=== PATIENT | male | born 1950 | race Caucasian/White ===

== ENCOUNTER → 2018-05-09 | Outpatient (CLI) | payer OTHER ==
[~2018-05-09] VITALS: Ht 193 cm; Wt 136.1 kg
== END | disposition home or self-care (01) ==
LOC: Rad HDHVI 10:47
PROVIDERS: ATTEND Internal Medicine Cardiovascular Disease
DX: I48.0 Paroxysmal atrial fibrillation (principal); I48.91 Unspecified atrial fibrillation; M10.9 Gout, unspecified
CPT/HCPCS: 78452; 93017; 93306; 96374; A9500

== ENCOUNTER → 2019-07-25 | Outpatient (CLI) | payer OTHER | END | disposition home or self-care (01) | LOC: Rad HDHVI 08:33 | PROVIDERS: ATTEND Internal Medicine Cardiovascular Disease | DX: I50.33 Acute on chronic diastolic (congestive) heart failure (principal); I48.91 Unspecified atrial fibrillation; R00.1 Bradycardia, unspecified | CPT/HCPCS: 93306 ==

== ENCOUNTER → 2020-03-13 | Outpatient (CLI) | payer OTHER ==
[2020-03-13 08:19] VITALS: BP 122/79
--- NOTE | 2020-03-13 08:19 | NUR ---
CLINIC PT ARRIVED TO THE [facility] FOR PRE OP EKG, LABS, CXR FOR PPI/CARDIOVERSION, A/OX4, AMBULATORY WITH CANE. BREATHING IS EVEN AND UNLABORED.
--- NOTE | 2020-03-13 08:25 | NUR ---
EKG DONE BY HARLAN DORANTES REVIEWED BY ANURADHA HAYNES A FIB [id number]
[2020-03-13 08:35] VITALS: BP 138/84
--- NOTE | 2020-03-13 08:35 | NUR ---
Pre-Op Discharge Summary: See e-MAR for any medications given for this visit. Pre-op orders received and carried out per MD of EKG, LABS and chest xrays. Patient given a copy of EKG with instructions to go to [facility] out patient for further follow up care. NOTE EKG DONE BY HARLAN DORANTES REVIEWED BY ANURADHA HAYNES
[2020-03-13 12:02] LABS: Hematocrit 46.3 % (41.0-53.0); Hemoglobin 14.8 g/dL (13.5-17.5); Mean Corpuscular Hemoglobin 29.1 pg (28.0-32.0); Platelet Count (auto) 113 10^3/uL (140-450); Red Blood Cells 5.09 10^6/uL (4.5-5.90); Red Cell Distribution Width 15.2 % (11.8-14.3)
[2020-03-13 12:08] LABS: Band Neutrophils % (manual) 0; Basophils % (manual) 0 (0.0-2.0); Blast Cells 0; Metamyelocytes % 0; Myelocytes % 0; Promyelocytes % 0; Reactive Lymphocytes 0
[2020-03-13 12:12] LABS: BUN/Creatinine Ratio 12.3; Calcium 9.7 mg/dL (8.5-10.1); INR 1.03 (0.9-1.15); Partial Thromboplastin Time 29.4 sec (23.0-31.2); Potassium 4.2 mmol/L (3.5-5.1)
[2020-03-13 12:38] LABS: Eosinophils % (manual) 3 (0-7); Lymphocytes % (manual) 74 (10.0-50.0); Monocytes % (manual) 3 (0-12)
== END | disposition home or self-care (01) ==
LOC: Rad HDHVI 08:06
PROVIDERS: ATTEND Internal Medicine Cardiovascular Disease
DX: Z01.812 Encounter for preprocedural laboratory examination (principal); J98.11 Atelectasis; Z01.818 Encounter for other preprocedural examination; J84.9 Interstitial pulmonary disease, unspecified; I50.9 Heart failure, unspecified
CPT/HCPCS: 36415; 71046; 80048; 85007; 85027; 85610; 85730; 93005; G0463

== ENCOUNTER 2020-03-19 07:27 | Inpatient (IN) | payer OTHER ==
[~2020-03-19] VITALS: Ht 193 cm; Wt 135.7 kg
[~2020-03-19 07:27] MED LIST: ALLO300T2 PO; APIX2.5T PO; OMEP20TA PO; POM PO; SOTA80TA PO; TAMS0.4C36 PO
[2020-03-19] MEDS ORDERED: MIDAZOLAM HCL 1MG/1ML-2 ML VIAL IV ONE (08:45)
[2020-03-19] MEDS ORDERED: VANCOMYCIN 1GM/250ML 250 ML IV ONE (10:15)
[2020-03-19] MEDS ORDERED: diphenhdrAMINE HCL 50 MG/1 ML VL ONE (10:20)
[2020-03-19] MEDS ORDERED: diphenhdrAMINE HCL 50 MG/1 ML VL IV ONE (10:30)
[2020-03-19] MEDS ORDERED: MIDAZOLAM HCL 1MG/1ML-2 ML VIAL ONE (11:23)
[2020-03-19] MEDS ORDERED: fentaNYL CITRATE 100 MCG/2 ML VL ONE (11:38)
[2020-03-19] MEDS ORDERED: LIDOCAINE 2%HCL (LOCAL ANESTH.) INJ 20ML MDV ONE (11:41)
[2020-03-19] MEDS ORDERED: VANCOMYCIN HCL 1000 MG VL ONE (11:41)
[2020-03-19] MEDS ORDERED: MORPHINE SULF INJ 2 MG/ML SYRINGE 1ML IV PRN (12:45)
[2020-03-19] MEDS ORDERED: NITROGLYCERIN 0.4 MG SL TAB SL PRN (12:45)
[2020-03-19] MEDS: ceFAZolin 1GM/50ML 50 ML IV SCH ×2 (14:19→21:29)
--- NOTE | 2020-03-19 16:15 | NUR ---
Admit from [facility]ailiff Report received from DALLAS Navarro. DIXON ACEVEDO brought to bed following cardioversion and dual chamber pacemaker insertion with Dr. Moore. Patient transferred to unit bed, connected to nuclear monitoring technician; #46 SR 80'S. Safeguard in place with sling immobilizing left arm. Patient aware of restrictions. All questions and concerns addressed, patient verbalized understanding of all education and instruction. Bed is low, locked with 2x side rails up. Call light is within reach. NOTE:
[2020-03-19 17:00] VITALS: BP 137/83
[2020-03-19] MEDS ORDERED: POM PO (17:03)
[2020-03-19] MEDS ORDERED: TAMSULOSIN HYDROCHLORIDE 0.4 MG CAP PO SCH (18:00)
[2020-03-19] MEDS ORDERED: PATIENTS OWN MEDICATION PO SCH (18:00)
--- NOTE | 2020-03-19 19:25 | NUR ---
Opening Shift Note Assumed care of patient, awake and alert x 4. No S/S of distress/SOB or pain safe guard to left chest in place. Tele box matches pt all leads are in place. Bed lowered and locked side rails up x 2. Call light and bedside table are within reach. Instructed on POC and to call for assist PRN, will continue to monitor for changes Q1hr and PRN.
[2020-03-19] MEDS: SOTALOL HCL 80 MG TAB PO SCH (21:31)
[2020-03-19 22:00] VITALS: BP 135/78
[2020-03-19] MEDS ORDERED: SOTALOL HCL 80 MG TAB PO SCH (22:00)
--- NOTE | 2020-03-19 22:05 | NUR ---
Contacted Dr. Moore request for pain medication new orders received.
[2020-03-20] MEDS ORDERED: KETOROLAC TROMETH 30 MG/ML 1ML VIAL IV PRN (00:30)
[2020-03-20] MEDS: ceFAZolin 1GM/50ML 50 ML IV SCH (04:38)
[2020-03-20 05:33] VITALS: BP 115/73
[2020-03-20 08:34] VITALS: BP 137/87
[2020-03-20] MEDS: SOTALOL HCL 80 MG TAB PO SCH (09:40)
[2020-03-20] MEDS ORDERED: ALLOPURINOL 300 MG TAB PO SCH ×2 (10:00→12:00)
[2020-03-20] MEDS ORDERED: PANTOPRAZOLE 40 MG TAB PO SCH (10:00)
[2020-03-20] MEDS ORDERED: OMEPRAZOLE 20MG/10ML ORAL SUSP PO SCH (12:00)
[2020-03-20 13:00] VITALS: BP 137/87
[2020-03-20 16:17] VITALS: BP 129/79
[2020-03-20 17:00] VITALS: BP 129/79
--- NOTE | 2020-03-20 17:07 | NUR ---
DISCHARGE INSTRUCTIONS GIVEN TO PT. VERBALIZED UNDERSTANDING. ALL APPROPRIATE PAPERWORK SIGNED. IV AND TELE BOX REMOVED. PT DISCHARGED HOME SAFEGUARD ON LEFT CHEST, SLING IN PLACE. DISCHARGED HOME WITH .
== END 2020-03-20 17:00 | disposition home or self-care (01) | DRG 243 ==
LOC: CATH 07:27 → TELE-CENTR 07:28
PROVIDERS: ADMIT Internal Medicine Cardiovascular Disease; ATTEND Internal Medicine Cardiovascular Disease
PROC: 0JH606Z Insertion of Pacemaker, Dual Chamber into Chest Subcutaneous Tissue and Fascia, Open Approach (ICD-10-PCS; principal; 2020-03-19)
PROC: 02HK3JZ Insertion of Pacemaker Lead into Right Ventricle, Percutaneous Approach (ICD-10-PCS; 2020-03-19)
PROC: 02H63JZ Insertion of Pacemaker Lead into Right Atrium, Percutaneous Approach (ICD-10-PCS; 2020-03-19)
PROC: 5A2204Z Restoration of Cardiac Rhythm, Single (ICD-10-PCS; 2020-03-19)
DX: I49.5 Sick sinus syndrome (principal); D68.69 Other thrombophilia; I48.0 Paroxysmal atrial fibrillation; I10 Essential (primary) hypertension; N40.0 Benign prostatic hyperplasia without lower urinary tract symptoms; Z79.01 Long term (current) use of anticoagulants; Z88.8 Allergy status to other drugs, medicaments and biological substances; Z03.818 Encounter for observation for suspected exposure to other biological agents ruled out
CPT/HCPCS: 33208; 71045; 92960; 93005; 99152; C1785; G0378; J0690; J1885; J2250

== ENCOUNTER → 2020-07-21 | Outpatient (CLI) | payer OTHER | END | disposition home or self-care (01) | LOC: Rad HDHVI 08:00 | PROVIDERS: ATTEND Internal Medicine Cardiovascular Disease | DX: I48.11 Longstanding persistent atrial fibrillation (principal); R00.2 Palpitations | CPT/HCPCS: 93306 ==